=== PATIENT | male | born 1970 | race Caucasian/White ===

== ENCOUNTER 2019-06-28 21:01 | Emergency (ER) | payer SELFPAY | END 2019-06-28 21:53 | disposition home or self-care (01) | LOC: ERS 21:01 | DX: L03.114 Cellulitis of left upper limb (principal); B86 Scabies | CPT/HCPCS: 99282 ==

== ENCOUNTER 2019-08-21 08:23 | Emergency (ER) | payer SELFPAY ==
[2019-08-21] MEDS ORDERED: Adacel (T-DAP) 0.5 ML SYRINGE ONE (09:10)
[2019-08-21] MEDS ORDERED: Lidocaine 1% (PF) 30 ML VIAL ONE (09:10)
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
[2019-08-21] MEDS ORDERED: Bacitracin 1 PK ONE (10:40)
== END 2019-08-21 10:55 | disposition home or self-care (01) ==
LOC: ERS 08:23
DX: S01.81XA Laceration without foreign body of other part of head, initial encounter (principal); Z23 Encounter for immunization; F17.200 Nicotine dependence, unspecified, uncomplicated; V89.2XXA Person injured in unspecified motor-vehicle accident, traffic, initial encounter
CPT/HCPCS: 12052; 70450; 90471; 90715; J2001

== ENCOUNTER 2019-08-31 02:21 | Emergency (ER) | payer SELFPAY | END 2019-08-31 02:47 | disposition left against medical advice (07) | LOC: ERS 02:21 | DX: Z53.21 Procedure and treatment not carried out due to patient leaving prior to being seen by health care provider (principal) ==

== ENCOUNTER 2021-06-14 00:57 | Emergency (ER) | payer SELFPAY ==
[2021-06-14 01:41] LABS: #Eosinphils 0.1 thou/uL (0.0-0.7); #Lymphocytes 1.7 thou/uL (1.20-3.40); #Monocytes 0.8 thou/uL (0.11-0.59); #Neutrophils 3.5 thou/uL (1.40-6.50); %Eosinophils 2.4 % (0.0-10.0); %Lymphocytes 28.1 % (21.0-51.0); %Monocytes 12.3 % (0.0-10.0); %Neutrophils 57.2 % (42.0-75.0); Hemoglobin 13.5 g/dL (14.0-18.0); Mean Corpuscular HGB CONC 33.4 g/dL (32.0-36.0); Mean Platelet Volume 8.4 fL (7.4-10.4); Platelet Count 153 thou/uL (130-400); RBC Distribution Width 11.9 % (11.5-14.5); Red Blood Cell (RBC) Count 4.34 mill/uL (4.70-6.10); White Blood Cell (WBC) Count 6.2 thou/uL (4.8-10.8)
[2021-06-14 02:13] LABS: ALT (SGPT) 31 U/L (8-55); AST (SGOT) 23 U/L (5-34); Alkaline Phosphatase 39 U/L (40-110); Anion Gap 12 mmol/L (10-20); BUN (Urea Nitrogen) 11 mg/dL (8.9-20.6); Bilirubin, Total 0.7 mg/dL (0.2-1.2); CK (CPK) 135 U/L (30-200); Calc. Creatinine Clearance 0 mL/min (70-130); Calcium 9.1 mg/dL (7.8-10.44); Carbon Dioxide 26 mmol/L (22-29); Chloride 101 mmol/L (98-107); Globulin 3.3 g/dL (2.4-3.5); Glucose 84 mg/dL (70-105); Potassium 3.6 mmol/L (3.5-5.1); Protein, Total 7.3 g/dL (6.0-8.3); Sodium 135 mmol/L (136-145)
[2021-06-14] MEDS ORDERED: Dexamethasone 4 MG TAB ONE (03:59)
[2021-06-14] MEDS ORDERED: Albuterol 200 PUFF (6.7GM INHALER) ONE (03:59)
[2021-06-14 12:00] LABS: SARS-CoV-2 PCR by NAA DETECTED (NotDetected)
== END 2021-06-14 04:16 | disposition home or self-care (01) ==
LOC: ERS 00:57
DX: U07.1 COVID-19 (principal); J12.82 Pneumonia due to coronavirus disease 2019; Z72.0 Tobacco use
CPT/HCPCS: 36415; 71045; 80053; 82550; 83605; 84443; 84484; 85025; 93005; J8540; U0003; U0005